=== PATIENT | male | born 1945 | race Caucasian/White ===

== ENCOUNTER 2021-11-23 06:42 | Inpatient (IN) ==
[2021-11-10 12:23] LABS: Basophils % 0.7 % (0.0-0.8); Eosinophils # 0.1 10*3/uL (0.0-0.87); Hematocrit 28.2 VOL% (42.0-52.0); Hemoglobin 9.2 GM/DL (14.0-18.0); Immature Granulocytes % 0.3 %; Immature Granulocytes Absolute 0.02 #; Lymphocytes # 1.8 10*3/uL (1.4-4.0); Lymphocytes % 28.9 % (21.2-54.2); Mean Corpuscular HGB Conc 32.6 GM/DL (32-36); Mean Corpuscular Volume 95.9 FL (87-102); Mean Platelet Volume 10.2 FL (9.6-12.0); Monocytes % 10.2 % (1.7-12.7); Neutrophils % 57.9 % (38.7-73.9); Platelet Count 324 T/CUMM (130-400); Red Blood Count 2.94 MC/CUMM (3.8-5.5); Red Cell Distribution Width 15.6 % (9.3-17.3); White Blood Count 6.2 T/CUMM (4-12)
[2021-11-10 12:47] LABS: Alanine Aminotransferase 21 U/L (16-61); Albumin 4.1 G/DL (3.4-5.0); Alkaline Phosphatase 77 U/L (45-117); Aspartate Amino Transferase 19 U/L (0-37); Bilirubin,Total < 0.39 MG/DL (0.20-1.00); Blood Urea Nitrogen 29 MG/DL (7-18); Carbon Dioxide 21 MMOL/L (21-32); Estimated Glom Filtration Rate 65 ML/MIN; Glucose 124 MG/DL (74-106); Osmolality,Calculated 279.8 MOS/KG (273-304); Potassium 4.7 MMOL/L (3.5-5.1); Sodium 137 MMOL/L (136-145); Total Protein 7.6 G/DL (6.4-8.2)
[~2021-11-23 06:42] MED LIST: HEPARIN/NACL 0.9% 2 UNITS/ML 1,000 UNIT/500 ML BAG IV ONE; LACTATED RINGERS 1,000 ML IV ONE; LACTATED RINGERS 1,000 ML IV SCH; NITROGLYCERIN DRIP 50 MG/250 ML BOTTLE IV ONE; PHENYLEPHRINE 10 MG/1 ML VIAL IV ONE; SODIUM CHLORIDE 0.9% 1,000 ML IV ONE; SODIUM CHLORIDE 0.9% 250 ML IV ONE
[2021-11-23] MEDS ORDERED: DEXMEDETOMIDINE 200 MCG/2 ML VIAL ONE (06:55)
[2021-11-23] MEDS ORDERED: DEXAMETHASONE 4 MG/1 ML VIAL ONE ×3 (06:55→09:33)
[2021-11-23] MEDS ORDERED: LIDOCAINE 1% 5 ML VIAL ONE (06:55)
[2021-11-23] MEDS ORDERED: ROPIVACAINE 0.5% 30 ML VIAL ONE (06:55)
[2021-11-23] MEDS ORDERED: FAMOTIDINE 20 MG TABLET PO ONE (07:02)
[2021-11-23] MEDS ORDERED: DIAZEPAM 5 MG TABLET PO ONE (07:02)
[2021-11-23] MEDS ORDERED: ACETAMINOPHEN INJ 1,000 MG/100 ML VIAL IV ONE (08:02)
[2021-11-23] MEDS ORDERED: SEVOFLURANE 1 UNIT/15 MINUTE INH ONE ×5 (08:02→10:50)
[2021-11-23] MEDS ORDERED: ROCURONIUM 50 MG/5 ML VIAL IV ONE (08:02)
[2021-11-23] MEDS ORDERED: LIDOCAINE 2% 5 ML VIAL ONE (08:02)
[2021-11-23] MEDS ORDERED: KETOROLAC 30 MG/1 ML VIAL ONE (08:02)
[2021-11-23] MEDS ORDERED: propofoL 200 MG/20 ML VIAL IV ONE (08:02)
[2021-11-23] MEDS ORDERED: ONDANSETRON 4 MG/2 ML VIAL ONE (08:02)
[2021-11-23] MEDS ORDERED: HEPARIN 5,000 UNIT/1 ML VIAL ONE (08:03)
[2021-11-23] MEDS ORDERED: fentaNYL 100 MCG/2 ML VIAL ONE (08:03)
[2021-11-23] MEDS ORDERED: LIDOCAINE 1% 50 ML VIAL ONE (08:03)
[2021-11-23] MEDS ORDERED: ePHEDrine 50 MG/ML VIAL ONE (09:18)
[2021-11-23] MEDS ORDERED: HEPARIN 10,000 UNIT/10 ML VIAL ONE (09:31)
[2021-11-23] MEDS ORDERED: PROTAMINE SULFATE 50 MG/5 ML VIAL IV ONE (09:31)
[2021-11-23] MEDS ORDERED: ETOMIDATE 40 MG/20 ML VIAL IV ONE (09:34)
[2021-11-23] MEDS ORDERED: NEOSTIGMINE 10 MG/10 ML VIAL ONE (09:41)
[2021-11-23] MEDS ORDERED: GLYCOPYRROLATE 0.4 MG/2 ML VIAL ONE (09:41)
[2021-11-23] MEDS ORDERED: oxyCODONE/ACETAMINOPHEN 5-325 MG TABLET PO PRN ×2 (10:14)
[2021-11-23] MEDS ORDERED: PROMETHAZINE 25 MG/1 ML VIAL IM PRN (10:14)
[2021-11-23] MEDS ORDERED: NALOXONE 0.4 MG/ML VIAL IV PRN (10:14)
[2021-11-23] MEDS ORDERED: DEXTROSE 10% 250 ML BAG IV PRN (10:14)
[2021-11-23] MEDS ORDERED: ONDANSETRON 4 MG/2 ML VIAL IV PRN (10:14)
[2021-11-23] MEDS ORDERED: GLUCAGON 1 MG VIAL IM PRN (10:14)
[2021-11-23] MEDS ORDERED: HYDROmorphone 2 MG/1 ML VIAL IV PRN ×2 (10:14)
[2021-11-23] MEDS ORDERED: [UNRECOGNIZED DRUG - OTHER] INH PRN (10:16)
[2021-11-23] MEDS ORDERED: NITROGLYCERIN SL 0.4 MG TABLET SL PRN (10:16)
[2021-11-23] MEDS ORDERED: NITROPRUSSIDE 100 MG in DEXTROSE 5% 250 ML IV SCH (10:30)
[2021-11-23] MEDS ORDERED: PHENYLEPHRINE DRIP 40 MG/250 ML PREMIX IV SCH (10:30)
[2021-11-23] MEDS ORDERED: ALBUTEROL 1.25 MG/3 ML NEB RESP TX PRN (11:22)
[2021-11-23 11:44] VITALS: BP 151/64
[2021-11-23] MEDS: LACTATED RINGERS 1,000 ML IV SCH ×2 (12:16→21:50)
[2021-11-23] MEDS: INSULIN REGULAR 100 UNIT/ML SUBCUT SCH ×3 (12:26→21:51)
[2021-11-23] MEDS ORDERED: NITROPRUSSIDE 50 MG/2 ML VIAL ONE (12:35)
[2021-11-23] MEDS: hydrALAZINE 25 MG TABLET PO SCH ×2 (14:33→20:45)
[2021-11-23] MEDS: gemfibroziL 600 MG TABLET PO SCH (20:40)
[2021-11-23] MEDS: FLUTICASONE/SALMETEROL 250-50 DISKUS 14 DOSE INH SCH (20:54)
[2021-11-23] MEDS ORDERED: CARBIDOPA/LEVODOPA 25-100 MG TABLET PO SCH (21:00)
[2021-11-24] MEDS: LACTATED RINGERS 1,000 ML IV SCH ×2 (04:00→06:50)
[2021-11-24] MEDS: INSULIN REGULAR 100 UNIT/ML SUBCUT SCH (08:28)
[2021-11-24] MEDS: gemfibroziL 600 MG TABLET PO SCH (08:37)
[2021-11-24] MEDS: FLUTICASONE/SALMETEROL 250-50 DISKUS 14 DOSE INH SCH (08:38)
[2021-11-24] MEDS: hydrALAZINE 25 MG TABLET PO SCH (08:38)
[2021-11-24] MEDS ORDERED: amLODIPine 10 MG TABLET PO SCH (09:00)
[2021-11-24] MEDS ORDERED: CHOLECALCIFEROL 5,000 UNIT TABLET PO SCH (09:00)
[2021-11-24] MEDS ORDERED: ATORVASTATIN 80 MG TABLET PO SCH (09:00)
[2021-11-24] MEDS ORDERED: CLOPIDOGREL 75 MG TABLET PO SCH ×2 (09:00)
[2021-11-24] MEDS ORDERED: lisinopriL 20 MG TABLET PO SCH (09:00)
[2021-11-24] MEDS ORDERED: NON-FORMULARY MEDICATION (Alogliptin 12.5 mg Tablet) PO SCH (09:00)
[2021-11-24] MEDS ORDERED: POTASSIUM CHLORIDE 10 MEQ TABLET PO SCH (09:00)
[2021-11-24] MEDS ORDERED: hydroCHLOROthiazide 25 MG TABLET PO SCH (09:00)
[2021-11-24] MEDS ORDERED: ASPIRIN EC 81 MG TABLET PO SCH (09:00)
[2021-11-24] MEDS ORDERED: NON-FORMULARY MEDICATION (Aspirin 81 mg Tablet) PO SCH (09:00)
[2021-11-24] MEDS ORDERED: MAGNESIUM OXIDE 400 MG TABLET PO SCH (09:00)
[2021-11-24] MEDS ORDERED: PANTOPRAZOLE 40 MG TABLET PO SCH (09:00)
[2021-11-24] MEDS ORDERED: hydrALAZINE 20 MG/1 ML VIAL IV PRN (09:20)
[2021-11-24] MEDS ORDERED: PHENOL 1.4% THROAT SPRAY 177 ML BOTTLE PO PRN (10:15)
[2021-11-25] MEDS ORDERED: NF- (Alogliptin 12.5 mg Tablet) PO SCH (09:00)
== END 2021-11-24 13:40 | disposition home or self-care (01) | DRG 38 ==
LOC: N.OR 06:42 → N.SDSINP 06:44 → EDSTATUS 08:00 → N.SDSINP 10:14 → N.ICU 11:07
PROVIDERS: ADMIT Surgery; ATTEND Surgery

== ENCOUNTER 2022-01-12 16:37 | Observation (INO) ==
[2022-01-12 18:07] LABS: Basophils % 0.5 % (0.0-0.8); Eosinophils # 0.1 10*3/uL (0.0-0.87); Eosinophils % 1.7 % (0.00-10.9); Hematocrit 20.7 VOL% (42.0-52.0); Hemoglobin 6.6 GM/DL (14.0-18.0); Immature Granulocytes % 0.3 %; Immature Granulocytes Absolute 0.02 #; Lymphocytes # 1.8 10*3/uL (1.4-4.0); Lymphocytes % 29.9 % (21.2-54.2); Mean Corpuscular HGB Conc 31.9 GM/DL (32-36); Mean Corpuscular Volume 88.8 FL (87-102); Mean Platelet Volume 9.8 FL (9.6-12.0); Monocytes % 10.4 % (1.7-12.7); Neutrophils % 57.2 % (38.7-73.9); Platelet Count 364 T/CUMM (130-400); Red Blood Count 2.33 MC/CUMM (3.8-5.5); Red Cell Distribution Width 14.2 % (9.3-17.3)
[2022-01-12 18:36] LABS: Alanine Aminotransferase 32 U/L (16-61); Albumin 4.3 G/DL (3.4-5.0); Alkaline Phosphatase 89 U/L (45-117); Aspartate Amino Transferase 26 U/L (0-37); Bilirubin,Total < 0.39 MG/DL (0.20-1.00); Blood Urea Nitrogen 34 MG/DL (7-18); Calcium 10.8 MG/DL (8.5-10.1); Carbon Dioxide 22 MMOL/L (21-32); Estimated Glom Filtration Rate 40 ML/MIN; Glucose 99 MG/DL (74-106); Osmolality,Calculated 282.7 MOS/KG (273-304); Potassium 3.6 MMOL/L (3.5-5.1); Sodium 138 MMOL/L (136-145); Total Protein 8.6 G/DL (6.4-8.2)
[2022-01-12] MEDS ORDERED: SODIUM CHLORIDE 0.9% 1,000 ML IV PRN (20:24)
[2022-01-12] MEDS ORDERED: GLUCAGON 1 MG VIAL IM PRN (22:20)
[2022-01-12] MEDS ORDERED: DEXTROSE 10% 250 ML BAG IV PRN (22:20)
[2022-01-12] MEDS ORDERED: ONDANSETRON 4 MG/2 ML VIAL IV PRN (22:22)
[2022-01-12] MEDS ORDERED: DEXTROSE 50% 25 GM/50 ML VIAL IV PRN (22:22)
[2022-01-12] MEDS ORDERED: DOCUSATE SODIUM 100 MG CAPSULE PO PRN (22:22)
[2022-01-12] MEDS ORDERED: traZODone 50 MG TABLET PO PRN (22:22)
[2022-01-12] MEDS ORDERED: ACETAMINOPHEN 325 MG TABLET PO PRN (22:22)
[2022-01-13 06:25] LABS: Basophils % 0.7 % (0.0-0.8); Eosinophils # 0.2 10*3/uL (0.0-0.87); Eosinophils % 2.6 % (0.00-10.9); Hematocrit 26.5 VOL% (42.0-52.0); Hemoglobin 8.4 GM/DL (14.0-18.0); Immature Granulocytes % 0.3 %; Immature Granulocytes Absolute 0.02 #; Lymphocytes # 1.9 10*3/uL (1.4-4.0); Lymphocytes % 32.5 % (21.2-54.2); Mean Corpuscular HGB Conc 31.7 GM/DL (32-36); Mean Corpuscular Volume 91.4 FL (87-102); Mean Platelet Volume 9.7 FL (9.6-12.0); Monocytes % 14.9 % (1.7-12.7); Platelet Count 342 T/CUMM (130-400); Red Cell Distribution Width 14.3 % (9.3-17.3); White Blood Count 5.8 T/CUMM (4-12)
[2022-01-13 06:43] LABS: Osmolality,Calculated 287.3 MOS/KG (273-304); Potassium 3.7 MMOL/L (3.5-5.1)
[2022-01-13] MEDS: INSULIN REGULAR 100 UNIT/ML SUBCUT SCH ×4 (06:44→20:45)
[2022-01-13 06:47] LABS: Vitamin B12 313 PG/ML (211-911)
[2022-01-13 06:49] LABS: % Iron Saturation 4.8 % (18-50); Ferritin 7.9 ng/mL (26-388)
[2022-01-13 06:53] LABS: Total Protein 7.6 G/DL (6.4-8.2)
[2022-01-13 07:18] LABS: Immunoglobulin A (Chem) 145 MG/DL (70-400); Immunoglobulin G (Chem) 743 MG/DL (700-1600); Immunoglobulin M (Chem) 86 MG/DL (40-230); Total Protein (Chem) 7.6 G/DL (6.4-8.3)
[2022-01-13 07:35] LABS: Sedimentation Rate-Westergren 58 MM/HR (0-20)
[2022-01-13 08:32] LABS: Albumin (SPE) 5.2 G/DL (3.2-5.3); Alpha 1 (SPE) 0.2 G/DL (0.1-0.4); Alpha 1 (SPE) Rel % 2.7 %; Alpha 2 (SPE) 0.7 G/DL (0.4-1.0); Alpha 2 (SPE) Rel % 9.4 %; Beta (SPE) 0.8 G/DL (0.5-1.1); Gamma (SPE) 0.7 G/DL (0.7-1.7); Gamma (SPE) Rel % 8.9 %
[2022-01-13] MEDS ORDERED: FERRIC GLUCONATE COMPLEX 125 MG in SODIUM CHLORIDE 0.9% 100 ML IV ONE (09:00)
[2022-01-13] MEDS: ATORVASTATIN 40 MG TABLET PO SCH (10:49)
[2022-01-13] MEDS: lisinopriL 20 MG TABLET PO SCH (10:49)
[2022-01-13] MEDS: amLODIPine 10 MG TABLET PO SCH (10:49)
[2022-01-13] MEDS: PANTOPRAZOLE 40 MG TABLET PO SCH (10:49)
[2022-01-13] MEDS: hydrALAZINE 25 MG TABLET PO SCH ×3 (10:50→20:47)
[2022-01-13] MEDS: POLYETHYLENE GLYCOL POWDER 17 GM PACK PO SCH (13:32)
[2022-01-14 06:21] LABS: Calcium 10.2 MG/DL (8.5-10.1); Osmolality,Calculated 283.4 MOS/KG (273-304); Potassium 3.7 MMOL/L (3.5-5.1)
[2022-01-14 06:38] LABS: Basophils % 0.7 % (0.0-0.8); Eosinophils # 0.2 10*3/uL (0.0-0.87); Eosinophils % 3.1 % (0.00-10.9); Hematocrit 29.5 VOL% (42.0-52.0); Hemoglobin 9.7 GM/DL (14.0-18.0); Immature Granulocytes % 0.4 %; Immature Granulocytes Absolute 0.02 #; Lymphocytes # 1.6 10*3/uL (1.4-4.0); Lymphocytes % 28.7 % (21.2-54.2); Mean Corpuscular HGB Conc 32.9 GM/DL (32-36); Mean Corpuscular Volume 88.6 FL (87-102); Mean Platelet Volume 9.7 FL (9.6-12.0); Monocytes % 15.4 % (1.7-12.7); Neutrophils % 51.7 % (38.7-73.9); Platelet Count 358 T/CUMM (130-400); Red Blood Count 3.33 MC/CUMM (3.8-5.5); Red Cell Distribution Width 14.3 % (9.3-17.3); White Blood Count 5.5 T/CUMM (4-12)
[2022-01-14 06:49] LABS: Eosinophils 5 % (0-10); Hypochromia 1+; Lymphocytes 25 % (20-55); Microcytosis 1+; Platelet Estimate Adequate; Segmented Neutrophils 57 % (50-85); Total Cells Counted 100
[2022-01-14 08:33] LABS: Hemoglobin A1 (Alkaline) 97.7 % (96.5-98.5); Hemoglobin A2 (Alkaline) 2.3 % (1.5-3.5)
[2022-01-14] MEDS: hydrALAZINE 25 MG TABLET PO SCH ×2 (08:43→13:59)
[2022-01-14] MEDS: INSULIN REGULAR 100 UNIT/ML SUBCUT SCH ×2 (08:43→13:52)
[2022-01-14] MEDS: amLODIPine 10 MG TABLET PO SCH (08:44)
[2022-01-14] MEDS: ATORVASTATIN 40 MG TABLET PO SCH (08:44)
[2022-01-14] MEDS: PANTOPRAZOLE 40 MG TABLET PO SCH (08:44)
[2022-01-14] MEDS: POLYETHYLENE GLYCOL POWDER 17 GM PACK PO SCH (08:44)
[2022-01-14] MEDS: lisinopriL 20 MG TABLET PO SCH (08:44)
[2022-01-14] MEDS ORDERED: ASPIRIN EC 81 MG TABLET PO SCH (09:00)
[2022-01-14] MEDS ORDERED: NICOTINE 21 MG/24 HR PATCH TRANSDERM SCH (09:00)
[2022-01-14] MEDS ORDERED: MAGNESIUM HYDROXIDE SUSP 30 ML UDCUP PO ONE (09:14)
[2022-01-14 09:16] LABS: Kappa Free Light Chain 5.25 mg/dL; Lambda Free Light Chain 2.17 mg/dL
[2022-01-14] MEDS ORDERED: FERRIC GLUCONATE COMPLEX 125 MG in SODIUM CHLORIDE 0.9% 100 ML IV ONE (09:32)
[2022-01-14 11:20] LABS: Soluble Transf Receptor (sTfR) 4.9 mg/L (1.8 - 4.6)
[2022-01-14 12:28] VITALS: BP 130/60
== END 2022-01-14 14:23 | disposition home or self-care (01) ==
LOC: N.EDINP 16:37 → N.ED 16:37 → SUATTDRO 20:17 → N.TELEN 01-13 00:33
PROVIDERS: ADMIT Internal Medicine; ATTEND Emergency Medicine